=== PATIENT | male | born 1985 | race Caucasian/White ===

== ENCOUNTER 2016-07-01 20:06 | Emergency (ER) | payer OTHER ==
[~2016-07-01 20:06] MED LIST: KEPPRA500 M2 PO; MOBIC PO; NO MEDICATIONS; PHENERGAN25 M1 PO
== END 2016-07-01 20:57 | disposition left against medical advice (07) ==
LOC: CED 20:06
DX: Z53.21 Procedure and treatment not carried out due to patient leaving prior to being seen by health care provider (principal)